=== PATIENT | female | born 1945 | race Caucasian/White ===

== ENCOUNTER → 2018-06-19 14:23 | Outpatient (CLI) | payer OTHER, SELFPAY | PROVIDERS: Visit Provider Physician Assistant | DX: M85.88 Other specified disorders of bone density and structure, other site (principal) | CPT/HCPCS: 77080 ==

== ENCOUNTER → 2019-09-11 14:15 | Outpatient (ROUT) | payer OTHER, SELFPAY ==
[2019-09-11 14:49] LABS: Add Manual Diff / Slide Review NO; Basophils Absolute Auto 0 /uL (0-100); Eosinophils Absolute Auto 100 /uL (0-450); Eosinophils Percent Auto 2.1 % (2-4); Hematocrit 34.1 % (36-46); Hemoglobin 11.6 g/dL (12.0-16.0); Lymphocytes Absolute Auto 1200 /uL (1100-4500); Lymphocytes Percent Auto 29.1 % (25-40); Mean Corpuscular HGB Conc 33.9 % (30-36); Mean Corpuscular Hemoglobin 32.4 PG (26-34); Mean Corpuscular Volume 95.6 fL (80-100); Monocytes Absolute Auto 400 /uL (0-900); Monocytes Percent Auto 10.5 % (3-14); Neutrophils Absolute Auto 2300 /uL (1500-7000); Neutrophils Percent Auto 57.3 % (50-75); Platelet Count 156 X10^3/uL (150-400); Red Blood Cell Count 3.57 X10^6/uL (4.0-5.2); Red Cell Distribution Width 13.8 % (11.6-14.8)
[2019-09-11 15:01] LABS: Alanine Aminotransferase 16 IU/L (<35); Albumin 4.2 g/dL (3.5-5.0); Albumin Globulin Ratio 1.4 (1.0-2.8); Alkaline Phosphatase 36 U/L (38-126); Aspartate Aminotransferase 28 IU/L (14-36); Bilirubin Total 0.4 mg/dL (0.2-1.3); Blood Urea Nitrogen 9 mg/dL (7-17); Calcium 9.3 mg/dL (8.4-10.2); Carbon Dioxide 31 mmol/L (22-32); Chloride 91 mmol/L (98-107); Cholesterol 179 mg/dL (140-199); Estimated Glomerular Filt Rate > 60.0 mL/min (>60); Glucose 77 mg/dL (80-110); HDL Cholesterol 55 mg/dL (40-60); HEMOLYSIS < 15 (0-50); LDL Cholesterol Calculated 110 mg/dL (<100); Potassium 4.8 mmol/L (3.4-5.1); Sodium 131 mmol/L (137-145); Total Protein 7.2 g/dL (6.3-8.2); Triglycerides 69 mg/dL (35-150)
[2019-09-11 15:29] LABS: TSH w/ Reflex to FT4 1.07 uIU/mL (0.47-4.68)
== END ==
PROVIDERS: Visit Provider Physician Assistant
DX: E03.9 Hypothyroidism, unspecified (principal); E78.5 Hyperlipidemia, unspecified
CPT/HCPCS: 80053; 80061; 84443; 85025

== ENCOUNTER 2020-02-24 14:14 | Emergency (ER) | payer MEDICARE, SELFPAY ==
[2020-02-24 14:22] VITALS: BP 122/62; PULSE 52; RESP 12; TEMP 36.2; O2SAT 99
--- NOTE | 2020-02-24 14:26 | PC.NURSE ---
reports, occured at her house, slipped on a rodriguez, occured approx [id number] denies head injury, loc, denies neck or back pain, or other injuries, ambulate with steady gait to room 2. reporting feeling dizzy at this time, hr 54, bp 122's, skin warm dry pink. prefers to be sitting on the stretcher.
--- NOTE | 2020-02-24 14:29 | PC.NURSE ---
gold colored band ring removed and pt gave to significant other.
--- NOTE | 2020-02-24 14:36 | DI.RAD.S_ITS ---
PROCEDURE: XR SHOULDER LT MIN 2V INDICATIONS: Left shoulder pain after fall on [place] TECHNIQUE: 3 views of the shoulder were acquired. COMPARISON: None. FINDINGS: Bones: There is a fracture identified involving the proximal humerus that appears to extend into the greater tuberosity. No dislocation or significant displacement of the fracture fragments is evident. No suspicious osseous lesions are identified. There are at least mild degenerative changes of the left shoulder joints. Soft tissues: No suspicious soft tissue calcifications. IMPRESSION: Proximal left humerus fracture with involvement of the greater tuberosity. No significant displacement. Dictated by: Bandar Eddy M.D. on 02/24/2020 at 14:28 Approved by: Bandar Eddy M.D. on 02/24/2020 at 14:29
--- NOTE | 2020-02-24 15:08 | ED.UPPEXIN ---
HPI - Extremity Injury (Upper) General Chief Complaint: Extremity Injury, Upper Stated Complaint: Fall lt arm Time Seen by Provider: 02/24/20 14:18 Source: patient Mode of arrival: Ambulatory History of Present Illness HPI narrative: 74-year-old woman with a history of osteoporosis and hypothyroidism presents after a fall at home onto a left outstretched arm complaining of acute left shoulder pain. She was walking along some [place] covered [place] property when she slipped. Her who was immediately available to help. There is no loss of consciousness and she did not injure any other part of her body. Once helped back to the house the pain caused a brief loss of consciousness with some nausea. This is now resolved. Related Data Home Medications Medication Instructions Recorded Confirmed levothyroxine [Synthroid] #0 11/10/17 Previous Rx's Medication Instructions Recorded ondansetron [Zofran ODT] 4 mg SUBLINGUAL Q6HP PRN #10 odt 11/11/17 hydrocodone-acetaminophen 1 tab PO Q8H PRN #14 tab 02/24/20 Allergies Allergy/AdvReac Type Severity Reaction Status Date / Time No Known Allergies Allergy Uncoded 02/13/18 13:06 Review of Systems Review of Systems Narrative: Pertinent positive and negative findings as per HPI Remainder of review of systems is otherwise unremarkable for Constitutional: Fevers, chills, weakness ENT: No sore throat, neck pain, ear pain CV: Chest pain, palpitations, dyspnea on exertion Respiratory: Cough, wheeze, dyspnea GI: Nausea, vomiting, diarrhea, change in bowel habits, black or bloody stools : Dysuria, hematuria, flank pain MS: Muscle weakness, numbness, joint swelling or warmth Skin: Rashes, nonhealing lesions Neuro: Syncope, dizziness, tingling Psych: Depression, anxiety, suicidal ideation Endocrine: Fatigue, heat or cold intolerance, very dry skin Heme: Easy bruising or bleeding Allergy: Seasonal rhinorrhea, itchy eyes Patient History Medical History Hypothyroidism (acquired) (Acute) Osteoporosis (Acute) Social History Smoking Status: Never smoker Smoking Status: Never smoker alcohol intake frequency: holidays/special occasions only Substance Use Type: does not use Exam Narrative Exam Narrative: General: Alert appropriate in no acute distress Respiratory: Able to speak in full sentences, no obvious respiratory distress Skin: No obvious rashes, warm and dry Neurologic: Grossly intact no obvious asymmetries or abnormalities Psych, appropriate insight and affect, cooperative Musculoskeletal, left shoulder anterior portion with fullness developing limited range of motion at the left shoulder due to pain, left upper extremity is neurovascularly intact with full range of motion at the elbow wrist and fingers Initial Vital Signs Initial Vital Signs: Vital Signs Temperature 97.2 F L 02/24/20 14:22 Pulse Rate 52 L 02/24/20 14:22 Respiratory Rate 12 02/24/20 14:22 Blood Pressure 122/62 02/24/20 14:22 Pulse Oximetry 99 02/24/20 14:22 Course Orders Ordered: ED Orders 02/24/20 14:36 XR shoulder LT min 2V Stat Vital Signs Vital signs: Vital Signs - 8 hr 02/24/20 14:22 Temperature 97.2 F L Pulse Rate 52 L Respiratory Rate 12 Blood Pressure 122/62 Pulse Oximetry 99 [facility] - Extremity Injury (Upper) Medical Records Attestation: I reviewed the patient's medical records. Imaging Data Shoulder x-ray: Radiologist's Impression: IMPRESSION: Proximal left humerus fracture with involvement of the greater tuberosity. No significant displacement. Dictated by: Bandar Eddy M.D. on 02/24/2020 at 14:28 MDM Narrative Medical decision making narrative: Mechanical fall in a basically healthy 74-year-old woman with subsequent proximal left humerus fracture. Neurovascularly intact without evidence of dislocation Pain is controlled Left arm is placed in a sling. Neurovascularly intact after sling placement and increased level of comfort for the patient is reported Will ask her to follow-up with ortho sometime within the next week. She is safe for home discharge Discharge Plan Departure Patient Disposition: Home Clinical Impression: Fracture of humerus Qualifiers: Encounter type: initial encounter Humerus Location: proximal Fracture type: closed Fracture morphology: other fracture Fracture alignment: nondisplaced Laterality: left Qualified Code(s): S42.295A - Other nondisplaced fracture of upper end of left humerus, initial encounter for closed fracture Instructions: DI for Fracture Activity Restrictions/Additional Instructions: Thank you for coming in today If you did break your arm. The fracture site is close to your shoulder joint but does not appear to be involving your shoulder joint. The treatment for this is typically use of the sling while your body heals itself. I would expect quite a bit of bruising and swelling for the 1st couple of days. Using 400 mg of ibuprofen (2 [id number] pills) and 1 Tylenol every 6 hours can be very helpful in controlling pain. Ice can also be helpful. For severe pain rather than Tylenol with the ibuprofen I would suggest 1 hydrocodone-acetaminophen, this is a narcotic. If you do choose to use the narcotic pain medication, please recognize that it will cause constipation and you will need to increase water, dried fruits or at a stool softener. Please call to schedule an appointment with the orthopedic surgeon for definitive fracture management sometime within the coming week. I hope you heal quickly Prescriptions: New hydrocodone-acetaminophen 5-325 mg tablet 1 tab PO Q8H PRN (Reason: pain) Qty: 14 RF: 0 No Action levothyroxine [Synthroid] 75 MCG tablet Qty: 0 RF: 0 ondansetron [Zofran ODT] 4 MG tablet,disintegrating 4 mg Sublingual Q6HP PRNQty: 10 RF: 0 Referrals: Jadyn Holland MD [Emergency Provider] - Rosa Babb MD [Physician] -
[2020-02-24 15:55] VITALS: BP 122/62; PULSE 52; O2SAT 98
== END 2020-02-24 15:55 | disposition home or self-care (01) ==
PROVIDERS: Emergency Provider Emergency Medicine
DX: S42.295A Other nondisplaced fracture of upper end of left humerus, initial encounter for closed fracture (principal); W01.0XXA Fall on same level from slipping, tripping and stumbling without subsequent striking against object, initial encounter
CPT/HCPCS: 73030; 99283

== ENCOUNTER → 2021-02-28 18:45 | Outpatient (ROUT) | payer OTHER, SELFPAY ==
[2021-02-28 20:08] LABS: Alanine Aminotransferase 19 IU/L (<35); Albumin 4.2 g/dL (3.5-5.0); Albumin Globulin Ratio 1.3 (1.0-2.8); Alkaline Phosphatase 42 U/L (38-126); Aspartate Aminotransferase 32 IU/L (14-36); BUN Creatinine Ratio 14.3 (6-22); Bilirubin Total 0.2 mg/dL (0.2-1.3); Blood Urea Nitrogen 8 mg/dL (7-17); Calcium 9.6 mg/dL (8.4-10.2); Carbon Dioxide 29 mmol/L (22-32); Chloride 94 mmol/L (98-107); Cholesterol 208 mg/dL (140-199); Estimated Glomerular Filt Rate > 60.0 mL/min (>60); Globulin 3.3 g/dL (1.7-4.1); Glucose 75 mg/dL (80-110); HDL Cholesterol 67 mg/dL (40-60); HEMOLYSIS < 15 (0-50); LDL Cholesterol Calculated 126 mg/dL (<100); Potassium 5.1 mmol/L (3.4-5.1); Sodium 131 mmol/L (137-145); Total Protein 7.5 g/dL (6.3-8.2); Triglycerides 77 mg/dL (35-150)
[2021-02-28 20:09] LABS: Vitamin D 25 Hydroxy (D3) 67.3 ng/mL (30.0-100.0)
[2021-02-28 20:25] LABS: TSH w/ Reflex to FT4 0.73 uIU/mL (0.47-4.68)
[2021-03-04 07:24] LABS: HEMOLYSIS < 15 (0-50); Iron 123 ug/dL (37-170)
[2021-03-04 07:34] LABS: Percent Iron Saturation 40 % (15-50); Total Iron Binding Capacity 309 ug/dL (265-497); Transferrin 263 mg/dL (206-381)
[2021-03-04 07:55] LABS: Ferritin 35 ng/mL (11-264)
== END ==
PROVIDERS: Visit Provider Physician Assistant
DX: E03.9 Hypothyroidism, unspecified (principal); M85.9 Disorder of bone density and structure, unspecified; E78.00 Pure hypercholesterolemia, unspecified
CPT/HCPCS: 80053; 80061; 82306; 82728; 83540; 83550; 84443

== ENCOUNTER → 2021-03-01 19:28 | Outpatient (ROUT) | payer OTHER, SELFPAY ==
[2021-03-01 20:10] LABS: Add Manual Diff / Slide Review NO; Basophils Absolute Auto 0 /uL (0-100); Basophils Percent Auto 0.7 % (0-2); Eosinophils Absolute Auto 100 /uL (0-450); Eosinophils Percent Auto 1.4 % (2-4); Hematocrit 33.1 % (36-46); Hemoglobin 11.4 g/dL (12.0-16.0); Lymphocytes Absolute Auto 1800 /uL (1100-4500); Lymphocytes Percent Auto 36.3 % (25-40); Mean Corpuscular HGB Conc 34.3 % (30-36); Mean Corpuscular Hemoglobin 32.7 PG (26-34); Mean Corpuscular Volume 95.1 fL (80-100); Monocytes Absolute Auto 400 /uL (0-900); Monocytes Percent Auto 8.1 % (3-14); Neutrophils Absolute Auto 2700 /uL (1500-7000); Neutrophils Percent Auto 53.5 % (50-75); Platelet Count 178 X10^3/uL (150-400); Red Blood Cell Count 3.48 X10^6/uL (4.0-5.2); Red Cell Distribution Width 13.8 % (11.6-14.8)
== END ==
PROVIDERS: Visit Provider Physician Assistant
DX: E03.9 Hypothyroidism, unspecified (principal); M85.9 Disorder of bone density and structure, unspecified; E78.00 Pure hypercholesterolemia, unspecified
CPT/HCPCS: 85025

== ENCOUNTER → 2021-03-29 13:28 | Outpatient (CLI) | payer OTHER, SELFPAY | PROVIDERS: PCP Physician Assistant; Referring Provider Physician Assistant; Visit Provider Physician Assistant | DX: M85.88 Other specified disorders of bone density and structure, other site (principal); Z78.0 Asymptomatic menopausal state; E07.9 Disorder of thyroid, unspecified | CPT/HCPCS: 77080 ==

== ENCOUNTER → 2023-04-19 | Outpatient (CLI) | payer OTHER, SELFPAY ==
--- NOTE | 2023-04-19 11:59 | DI.DEXA.S_ITS ---
Bone Density Report Name: BEATRIS NUNEZ Age: 77 Sex: Female Ethnicity: White Date of : 1945 Indication: osteopenia; parental hip fracture; prior fracture; Referring Provider: IMELDA SCHWAB Study: Bone densitometry was performed. Exam Date: April 19, 2023 Accession number: [id number] Bone Density: Region BMD T-score Z-score Classification AP Spine(L1, L2) 0.766 -1.9 0.4 Osteopenia Femoral Neck (Left) 0.740 -1.0 1.2 Normal Total Hip (Left) 0.805 -1.1 0.7 Osteopenia Femoral Neck (Right) 0.743 -1.0 1.2 Normal Total Hip (Right) 0.838 -0.9 1.0 Normal Total Hip Mean 0.821 -1.0 0.9 Normal World Health Organization criteria for BMD impression classify patients as: Normal (T-score at or above -1.0), Osteopenia (T-score between -1.0 and -2.5), or Osteoporosis (T-score at or below -2.5). 10-year Fracture Risk(1): Major Osteoporotic Fracture 22% Hip Fracture 9.5% Reported Risk Factors: [place] (), Neck BMD=0.740, BMI=21.9, previous fracture, parental fracture (1) FRAX(R) Version 3.08. Fracture probability calculated for an untreated patient. Fracture probability may be lower if the patient has received treatment. Previous Exams: -- Region Exam Age BMD T-score BMD Change BMD Change Date g/cm2 vs Baseline vs Previous -- AP Spine (L1-L2) 04/19/2023 77 0.766 -1.9 -0.010 (-1.2%)# -0.010 (-1.2%)# 03/29/2021 75 0.775 -1.9 Total Hip(Left) 04/19/2023 77 0.805 -1.1 -0.014 (-1.7%)# -0.014 (-1.7%)# 03/29/2021 75 0.818 -1.0 Total Hip(Right) 04/19/2023 77 0.838 -0.9 -0.019 (-2.2%)# -0.019 (-2.2%)# 03/29/2021 75 0.857 -0.7 -- *Denotes significance at 95% confidence level, LSC for AP Spine = 0.022 g/cm2, LSC for Total Hip = 0.027 g/cm2 # Denotes dissimilar scan types or analysis methods Impression: The patient has low bone mass, based on the Total Spine T-score. The patient has an estimated ten-year risk of hip fracture of 9.5% and an estimated ten-year risk of major fracture of 22%, based on the WHO FRAX algorithm. The patient has risk factors, including: parental hip fracture, previous fracture. No significant bone loss was observed. Discussion: BONE DENSITY IS LOW AT ONE OR MORE SKELETAL SITES. THE PATIENT'S BMD AND CLINICAL RISK FACTORS CONTRIBUTE TO THIS PATIENT'S HIGH RISK OF FRACTURE. This patient's lowest T-score is low at one or more skeletal sites. It meets the World Health Organization's (WHO) criteria for ?low bone mass? (T-score between -1.0 and -2.5). The patient's 10-year risk of hip fracture and 10 year risk of a major osteoporotic fracture as calculated by FRAX exceeds the threshold where pharmacological therapy is recommended by the National Osteoporosis Foundation (NOF). However, all treatment decisions require clinical judgment and consideration of individual patient factors, including patient preferences, comorbidities, previous drug use, risk factors not captured in the FRAX model (e.g., frailty, falls, vitamin D deficiency, increased bone turnover, interval significant decline in bone density) and possible under or overestimation of fracture risk by FRAX. The patient should follow a healthful lifestyle (good nutrition with adequate calcium and vitamin D, and appropriate weight-bearing exercise). Follow-Up: Consider a repeat BMD and Vertebral Fracture Assessment (VFA) exam in 2 years or sooner if medically necessary, to reassess this patient's status. Reported by: YOMAIRA SHEN M.D. on 04/19/2023 12:14:00 PM.
== END ==
LOC: RAD 11:38
PROVIDERS: PCP Physician Assistant; Referring Provider Physician Assistant; Visit Provider Physician Assistant
DX: Z78.0 Asymptomatic menopausal state (principal); M85.88 Other specified disorders of bone density and structure, other site
CPT/HCPCS: 77080

== ENCOUNTER → 2024-01-16 14:04 | Outpatient (CLI) | payer OTHER, SELFPAY ==
[2024-01-16 14:44] LABS: Hemoglobin 11.4 g/dL (12.0-16.0)
[2024-01-16 15:16] LABS: BUN Creatinine Ratio 14.3 (6-22); Blood Urea Nitrogen 8 mg/dL (7-17); Calcium 9.6 mg/dL (8.4-10.2); Carbon Dioxide 31 mmol/L (22-32); Chloride 97 mmol/L (98-107); Estimated Glomerular Filt Rate > 60 mL/min (>60); Glucose 85 mg/dL (80-110); HEMOLYSIS < 15 (0-50); Potassium 4.9 mmol/L (3.4-5.1); Sodium 131 mmol/L (137-145)
[2024-01-16 16:16] LABS: Creatinine Urine Random 55.3 mg/dL; Protein (Total) Urine Random 8 mg/dL (0-12); Protein Creatinine Ratio Urine 0.14 GRAM/24H
== END ==
LOC: LAB 14:07
PROVIDERS: PCP Physician Assistant; Referring Provider Student in an Organized Health Care Education/Training Program; Visit Provider Student in an Organized Health Care Education/Training Program
DX: N05.9 Unspecified nephritic syndrome with unspecified morphologic changes (principal); D64.9 Anemia, unspecified; R80.9 Proteinuria, unspecified
CPT/HCPCS: 36415; 80048; 82570; 84156; 85014; 85018

== ENCOUNTER → 2024-02-22 07:53 | Outpatient (CLI) | payer OTHER, SELFPAY ==
[2024-02-22 08:58] LABS: Appearance Urine UA CLEAR; Bilirubin Urine UA NEGATIVE (NEGATIVE); Color Urine UA YELLOW; Glucose Urine UA NEGATIVE (Negative); Ketones Urine UA NEGATIVE (NEGATIVE); Leukocyte Esterase Urine UA NEGATIVE (NEGATIVE); Nitrite Urine UA NEGATIVE (Negative); Occult Blood Urine UA NEGATIVE (Negative); Protein Urine UA NEGATIVE (Negative); Specific Gravity Urine UA 1.015 (1.000-1.035); Urobilinogen Urine UA 0.2 E.U./dL (0.2)
[2024-02-22 09:02] LABS: BUN Creatinine Ratio 8.6 (6-22); Bacteria Urine None Seen; Blood Urea Nitrogen 5 mg/dL (7-17); Calcium 9.3 mg/dL (8.4-10.2); Carbon Dioxide 30 mmol/L (22-32); Chloride 97 mmol/L (98-107); Culture Indicated Urine Cult Not Indicated; Estimated Glomerular Filt Rate > 60 mL/min (>60); Glucose 110 mg/dL (80-110); HEMOLYSIS < 15 (0-50); Potassium 4.4 mmol/L (3.4-5.1); RBC Urine None Seen (0-5/HPF); Sodium 131 mmol/L (137-145); Squamous Epithelial Cell Urine None Seen (0-5/HPF); Urine Volume 10mL (spun); WBC Urine None Seen (0-5/HPF)
[2024-02-22 09:32] LABS: Cortisol AM (Before 10AM) 15.2 ug/dL (4.46-22.7)
[2024-02-22 09:34] LABS: Thyroid Stimulating Hormone 0.689 uIU/mL (0.47-4.68)
[2024-02-22 10:13] LABS: Sodium Urine Random 124 mmol/L (30-90)
[2024-02-25 12:37] LABS: Osmolality Urine 373 mOsmol/kg (.)
[2024-02-26 09:22] LABS: Osmolality, Serum 273 mOsmol/kg (280-301)
== END ==
LOC: LAB 07:55
PROVIDERS: PCP Physician Assistant; Referring Provider Student in an Organized Health Care Education/Training Program; Visit Provider Student in an Organized Health Care Education/Training Program
DX: E78.1 Pure hyperglyceridemia (principal); N05.9 Unspecified nephritic syndrome with unspecified morphologic changes; E87.1 Hypo-osmolality and hyponatremia; E03.9 Hypothyroidism, unspecified; N30.00 Acute cystitis without hematuria
CPT/HCPCS: 36415; 80048; 81001; 82533; 83930; 83935; 84300; 84443

== ENCOUNTER → 2024-04-30 15:18 | Outpatient (CLI) | payer OTHER, SELFPAY ==
[2024-04-30 17:39] LABS: BUN Creatinine Ratio 11.5 (6-22); Blood Urea Nitrogen 7 mg/dL (7-17); Calcium 9.3 mg/dL (8.4-10.2); Carbon Dioxide 31 mmol/L (22-32); Chloride 96 mmol/L (98-107); Estimated Glomerular Filt Rate > 60 mL/min (>60); Glucose 87 mg/dL (80-110); HEMOLYSIS < 15 (0-50); Potassium 4.8 mmol/L (3.4-5.1); Sodium 130 mmol/L (137-145)
== END ==
PROVIDERS: PCP Physician Assistant; Referring Provider Student in an Organized Health Care Education/Training Program; Visit Provider Student in an Organized Health Care Education/Training Program
DX: N05.9 Unspecified nephritic syndrome with unspecified morphologic changes (principal)
CPT/HCPCS: 36415; 80048

== ENCOUNTER → 2024-08-15 10:59 | Outpatient (CLI) | payer OTHER, SELFPAY ==
[2024-08-15 13:50] LABS: BUN Creatinine Ratio 12.1 (6-22); Blood Urea Nitrogen 7 mg/dL (7-17); Calcium 9.3 mg/dL (8.4-10.2); Carbon Dioxide 29 mmol/L (22-32); Chloride 92 mmol/L (98-107); Estimated Glomerular Filt Rate > 60 mL/min (>60); Glucose 74 mg/dL (80-110); HEMOLYSIS < 15 (0-50); Potassium 4.7 mmol/L (3.4-5.1); Sodium 126 mmol/L (137-145)
== END ==
PROVIDERS: PCP Physician Assistant; Referring Provider Student in an Organized Health Care Education/Training Program; Visit Provider Student in an Organized Health Care Education/Training Program
DX: N05.9 Unspecified nephritic syndrome with unspecified morphologic changes (principal)
CPT/HCPCS: 36415; 80048

== ENCOUNTER → 2024-09-05 10:44 | Outpatient (CLI) | payer OTHER, SELFPAY ==
[2024-09-05 12:05] LABS: BUN Creatinine Ratio 41.7 (6-22); Blood Urea Nitrogen 25 mg/dL (7-17); Calcium 9.6 mg/dL (8.4-10.2); Carbon Dioxide 27 mmol/L (22-32); Chloride 92 mmol/L (98-107); Estimated Glomerular Filt Rate > 60 mL/min (>60); Glucose 136 mg/dL (80-110); HEMOLYSIS < 15 (0-50); Potassium 4.5 mmol/L (3.4-5.1); Sodium 128 mmol/L (137-145)
== END ==
PROVIDERS: PCP Physician Assistant; Referring Provider Student in an Organized Health Care Education/Training Program; Visit Provider Student in an Organized Health Care Education/Training Program
DX: N05.9 Unspecified nephritic syndrome with unspecified morphologic changes (principal)
CPT/HCPCS: 36415; 80048

== ENCOUNTER 2025-01-04 12:32 | Emergency (ER) | payer MEDICARE, SELFPAY ==
[2025-01-04] VITALS (23 sets, daily range): BP systolic 116–144; BP diastolic 59–74; PULSE 52–69; RESP 11–37; TEMP 36.7; O2SAT 96–100; BMI 21.2
--- NOTE | 2025-01-04 12:57 | DI.RAD.S_ITS ---
PROCEDURE: XR CHEST 1V INDICATIONS: chest pain TECHNIQUE: One view of the chest was acquired. COMPARISON: None. FINDINGS: Surgical changes and devices: None. Lungs and pleura: Lungs are clear. No pleural effusions or pneumothorax. Mediastinum: Mediastinal contours appear normal. Heart size is normal. Bones and chest wall: No suspicious bony lesions. Overlying soft tissues appear unremarkable. IMPRESSION: No acute cardiopulmonary abnormality is seen. Approved by: Johnny Colón M.D. on 01/04/2025 at 12:32
--- NOTE | 2025-01-04 13:01 | EKG_ITS ---
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
[2025-01-04 13:16] LABS: Add Manual Diff / Slide Review NO; Basophils Absolute Auto 0 /uL (0-100); Basophils Percent Auto 0.2 % (0-2); Eosinophils Absolute Auto 0 /uL (0-450); Eosinophils Percent Auto 0.1 % (2-4); Hematocrit 34.4 % (36-46); Hemoglobin 11.9 g/dL (12.0-16.0); Lymphocytes Absolute Auto 800 /uL (1100-4500); Lymphocytes Percent Auto 10.9 % (25-40); Mean Corpuscular HGB Conc 34.5 % (30-36); Mean Corpuscular Hemoglobin 32.4 PG (26-34); Mean Corpuscular Volume 93.7 fL (80-100); Monocytes Absolute Auto 400 /uL (0-900); Monocytes Percent Auto 5.7 % (3-14); Neutrophils Absolute Auto 6400 /uL (1500-7000); Neutrophils Percent Auto 83.1 % (50-75); Platelet Count 256 X10^3/uL (150-400); Red Blood Cell Count 3.67 X10^6/uL (4.0-5.2); Red Cell Distribution Width 13.5 % (11.6-14.8); White Blood Cell Count 7.6 X10^3/uL (4.5-11.0)
[2025-01-04 13:32] LABS: Prothrombin Time 11.4 SECONDS (9.4-12.5)
[2025-01-04 13:35] LABS: PTT Partial Thromboplastin Tim 45 SECONDS (25.1-36.5)
[2025-01-04 13:37] LABS: Alanine Aminotransferase 17 IU/L (<35); Albumin 4.4 g/dL (3.5-5.0); Albumin Globulin Ratio 1.2 (1.0-2.8); Alkaline Phosphatase 38 U/L (38-126); Aspartate Aminotransferase 28 IU/L (14-36); BUN Creatinine Ratio 15.3 (6-22); Bilirubin Total 0.4 mg/dL (0.2-1.3); Blood Urea Nitrogen 9 mg/dL (7-17); Calcium 9.3 mg/dL (8.4-10.2); Carbon Dioxide 29 mmol/L (22-32); Chloride 92 mmol/L (98-107); Creatine Kinase 32 U/L (30-135); Estimated Glomerular Filt Rate > 60 mL/min (>60); Globulin 3.6 g/dL (1.7-4.1); Glucose 112 mg/dL (80-110); HEMOLYSIS 19 (0-50); Lipase 41 U/L (23-300); Potassium 4.7 mmol/L (3.4-5.1); Sodium 129 mmol/L (137-145)
[2025-01-04 13:48] LABS: NT-proBNP (BNP-Adult 18+) 59 pg/mL (<450); Troponin I < 0.012 ng/mL (0.01-0.034)
--- NOTE | 2025-01-04 14:40 | PC.NURSE ---
Pt denies dizziness during orthostatic bp. A&Ox4. Stood at bedside with standby assist.
--- NOTE | 2025-01-04 15:15 | ED_ITS ---
HPI - Syncope General Chief Complaint: Syncope Stated Complaint: fainting, o2 82, bp&pulse low, covid+ t-12 Time Seen by Provider: 01/04/25 13:02 Source: patient and family Mode of arrival: Wheelchair Limitations: no limitations History of Present Illness HPI narrative: 71-year-old female who arrives accompanied by family for syncope. History is provided by the patient and daughter and son. Patient reports she was in the kitchen and began feeling lightheaded. She sat down and was unresponsive for a period of minutes. No seizure activity seen. Patient became alert and returned to baseline quickly. Patient reports food and feeling lightheaded she was feeling well prior to this. Recently did have COVID. Had been bending over and standing up when this occurred. Has had syncopal episodes in the past but not frequently. Has not been having chest pain has been eating less than usual but maintaining fluid intake. No signs of GI bleeding. Related Data Home Medications Medication Instructions Recorded Confirmed levothyroxine 75 mcg tablet ##0 11/10/17 (Synthroid) Previous Rx's Medication Instructions Recorded ondansetron 4 mg disintegrating 4 mg sublingual Q6HP PRN ##10 11/11/17 tablet (Zofran ODT) hydrocodone 5 mg-acetaminophen 325 1 tab PO Q8H PRN pain #14 tabs 02/24/20 mg tablet Allergies Allergy/AdvReac Type Severity Reaction Status Date / Time No Known Allergies Allergy Uncoded 02/13/18 13:06 Patient History Medical History (Updated 01/04/25 @ 15:11 by Yoel Ely MD) Hypothyroidism (acquired) Osteoporosis Social History Smoking Status: Never smoker Smoking Status: Never smoker alcohol intake frequency: holidays/special occasions only Exam Initial Vital Signs Initial Vital Signs: Vital Signs Temperature 98.1 F 01/04/25 12:47 Pulse Rate 58 L 01/04/25 12:47 Respiratory Rate 16 01/04/25 12:47 Blood Pressure 128/59 L 01/04/25 12:47 Pulse Oximetry 99 01/04/25 12:47 Oxygen Delivery Method Room Air 01/04/25 12:47 Vital signs reviewed, slightly bradycardic Const Other: Well-appearing elderly female hard of hearing HENMT HENMT Other: Normocephalic and atraumatic Neck Other: Neck is supple Resp Other: Lungs are clear Cardio Other: Regular rhythm and rate no murmur rub or gallop symmetric pulses GI Other: Normal bowel sounds soft nontender without pulsatile mass Skin Other: Warm and dry Neuro Other: Alert and oriented without focal deficit Course Course Course Narrative: Patient remained stable, no orthostatic vital sign changes Orders Ordered: ED Orders 01/04/25 12:57 XR chest 1V Stat EKG-12 Lead Stat 01/04/25 13:05 Complete Blood Count AUTO DIFF Stat Comprehensive Metabolic Panel Stat Lipase Stat Magnesium Stat NT-proBNP (BNP-Adult 18+) Stat PTT Partial Thromboplastin John Stat Prothrombin Time INR Stat Troponin & CK Cardiac Panel Stat Vital Signs Vital signs: Vital Signs - 8 hr 01/04/25 12:47 01/04/25 12:57 01/04/25 13:00 Temperature 98.1 F Pulse Rate 58 L 60 55 L Pulse Rate [Orthostatic Lying] Pulse Rate [Orthostatic Sitting] Pulse Rate [Orthostatic Standing] Respiratory Rate 16 Blood Pressure 128/59 L Blood Pressure [Orthostatic Lying] Blood Pressure [Orthostatic Sitting] Blood Pressure [Orthostatic Standing] Pulse Oximetry 99 99 99 Oxygen Delivery Method Room Air 01/04/25 13:03 01/04/25 13:03 01/04/25 13:30 Temperature Pulse Rate 59 L 56 L Pulse Rate [Orthostatic Lying] Pulse Rate [Orthostatic Sitting] Pulse Rate [Orthostatic Standing] Respiratory Rate 25 H Blood Pressure 144/73 H Blood Pressure [Orthostatic Lying] Blood Pressure [Orthostatic Sitting] Blood Pressure [Orthostatic Standing] Pulse Oximetry 100 96 Oxygen Delivery Method 01/04/25 13:30 01/04/25 13:43 01/04/25 13:43 Temperature Pulse Rate 56 L Pulse Rate [Orthostatic Lying] Pulse Rate [Orthostatic Sitting] Pulse Rate [Orthostatic Standing] Respiratory Rate 26 H Blood Pressure 116/71 129/68 Blood Pressure [Orthostatic Lying] Blood Pressure [Orthostatic Sitting] Blood Pressure [Orthostatic Standing] Pulse Oximetry 99 Oxygen Delivery Method 01/04/25 13:50 01/04/25 13:50 01/04/25 14:00 Temperature Pulse Rate 55 L 55 L Pulse Rate [Orthostatic Lying] Pulse Rate [Orthostatic Sitting] Pulse Rate [Orthostatic Standing] Respiratory Rate 32 H 31 H Blood Pressure 134/73 Blood Pressure [Orthostatic Lying] Blood Pressure [Orthostatic Sitting] Blood Pressure [Orthostatic Standing] Pulse Oximetry 99 96 Oxygen Delivery Method 01/04/25 14:00 01/04/25 14:10 01/04/25 14:10 Temperature Pulse Rate 57 L Pulse Rate [Orthostatic Lying] Pulse Rate [Orthostatic Sitting] Pulse Rate [Orthostatic Standing] Respiratory Rate 28 H Blood Pressure 126/66 130/73 Blood Pressure [Orthostatic Lying] Blood Pressure [Orthostatic Sitting] Blood Pressure [Orthostatic Standing] Pulse Oximetry 98 Oxygen Delivery Method 01/04/25 14:20 01/04/25 14:20 01/04/25 14:30 Temperature Pulse Rate 54 L 55 L Pulse Rate [Orthostatic Lying] Pulse Rate [Orthostatic Sitting] Pulse Rate [Orthostatic Standing] Respiratory Rate 26 H 22 Blood Pressure 133/74 Blood Pressure [Orthostatic Lying] Blood Pressure [Orthostatic Sitting] Blood Pressure [Orthostatic Standing] Pulse Oximetry 99 100 Oxygen Delivery Method 01/04/25 14:30 01/04/25 14:34 01/04/25 14:34 Temperature Pulse Rate 52 L Pulse Rate [Orthostatic Lying] Pulse Rate [Orthostatic Sitting] Pulse Rate [Orthostatic Standing] Respiratory Rate 11 L Blood Pressure 130/66 138/66 Blood Pressure [Orthostatic Lying] Blood Pressure [Orthostatic Sitting] Blood Pressure [Orthostatic Standing] Pulse Oximetry 100 Oxygen Delivery Method 01/04/25 14:35 01/04/25 14:35 01/04/25 14:36 Temperature Pulse Rate 58 L 60 Pulse Rate [Orthostatic Lying] Pulse Rate [Orthostatic Sitting] Pulse Rate [Orthostatic Standing] Respiratory Rate 36 H 37 H Blood Pressure 132/73 Blood Pressure [Orthostatic Lying] Blood Pressure [Orthostatic Sitting] Blood Pressure [Orthostatic Standing] Pulse Oximetry 100 99 Oxygen Delivery Method 01/04/25 14:36 01/04/25 14:39 01/04/25 14:40 Temperature Pulse Rate 54 L Pulse Rate [Orthostatic Lying] 53 L Pulse Rate [Orthostatic Sitting] 57 L Pulse Rate [Orthostatic Standing] 60 Respiratory Rate 28 H Blood Pressure 135/70 Blood Pressure [Orthostatic Lying] 130/66 Blood Pressure [Orthostatic Sitting] 132/73 Blood Pressure [Orthostatic Standing] 135/70 Pulse Oximetry 99 Oxygen Delivery Method 01/04/25 14:40 Temperature Pulse Rate Pulse Rate [Orthostatic Lying] Pulse Rate [Orthostatic Sitting] Pulse Rate [Orthostatic Standing] Respiratory Rate Blood Pressure 132/68 Blood Pressure [Orthostatic Lying] Blood Pressure [Orthostatic Sitting] Blood Pressure [Orthostatic Standing] Pulse Oximetry Oxygen Delivery Method MDM - Syncope Lab Data 01/04/25 13:05 01/04/25 13:05 Labs: Lab Results 01/04/25 Range/Units 13:05 WBC 7.6 (4.5-11.0) X10^3/uL RBC 3.67 L (4.0-5.2) X10^6/uL Hgb 11.9 L (12.0-16.0) g/dL Hct 34.4 L (36-46) % MCV 93.7 (80-100) fL MCH 32.4 (26-34) PG MCHC 34.5 (30-36) % RDW 13.5 (11.6-14.8) % Plt Count 256 (150-400) X10^3/uL Neut % (Auto) 83.1 H (50-75) % Lymph % (Auto) 10.9 L (25-40) % [place] % (Auto) 5.7 (3-14) % Eos % (Auto) 0.1 L (2-4) % Baso % (Auto) 0.2 (0-2) % Neut # (Auto) 6400 (5986-8940) /uL Lymph # (Auto) 800 L (7839-6731) /uL [place] # (Auto) 400 (0-900) /uL Eos # (Auto) 0 (0-450) /uL Baso # (Auto) 0 (0-100) /uL PT 11.4 (9.4-12.5) SECONDS INR 1.0 (0.9-1.3) APTT 45 H (25.1-36.5) SECONDS Sodium 129 L (137-145) mmol/L Potassium 4.7 (3.4-5.1) mmol/L Chloride 92 L (98-107) mmol/L Carbon Dioxide 29 (22-32) mmol/L BUN 9 (7-17) mg/dL Creatinine 0.59 (0.52-1.04) mg/dL Estimated GFR > 60 (>60) mL/min BUN/Creatinine Ratio 15.3 (6-22) Glucose 112 H (80-110) mg/dL Calcium 9.3 (8.4-10.2) mg/dL Magnesium 2.0 (1.6-2.3) mg/dL Total Bilirubin 0.4 (0.2-1.3) mg/dL AST 28 (14-36) IU/L ALT 17 (<35) IU/L Alkaline Phosphatase 38 (38-126) U/L Total Creatine Kinase 32 (30-135) U/L Troponin I < 0.012 (0.01-0.034) ng/mL NT-Pro-B Natriuret Pep 59 (<450) pg/mL Total Protein 8.0 (6.3-8.2) g/dL Albumin 4.4 (3.5-5.0) g/dL Globulin 3.6 (1.7-4.1) g/dL Albumin/Globulin Ratio 1.2 (1.0-2.8) Lipase 41 (23-300) U/L Discharge Plan Departure Patient Disposition: Home Clinical Impression: Syncope Qualifiers: Syncope type: unspecified Qualified Code(s): R55 - Syncope and collapse Activity Restrictions/Additional Instructions: Emergency department evaluation today is reassuring. No serious cause for this fainting episode is found I think it is safe to go home. I recommend that you get adequate fluids and take it easy for the next day or 2. If you find yourself feeling faint make sure that you are sitting down immediately. If you have another syncopal episode if you have shortness breath chest pain fevers or other acute symptoms recheck in the emergency department. Follow up soon with her primary care provider. Prescriptions: No Action levothyroxine [Synthroid] 75 MCG tablet Qty: 0 ondansetron [Zofran ODT] 4 MG tablet,disintegrating 4 mg Sublingual Q6HP PRNQty: 10 0RF hydrocodone-acetaminophen 5-325 mg tablet 1 tab PO Q8H PRN (Reason: pain) Qty: 14 0RF Rx Instructions: For fractured arm Referrals: Vidya Fernandez PA-C [Primary Care Provider] - Stand Alone Forms: Patient Portal/API/Survey
== END 2025-01-04 15:56 | disposition home or self-care (01) ==
PROVIDERS: Emergency Medicine; Emergency Provider Emergency Medicine; PCP Physician Assistant
DX: R55 Syncope and collapse (principal); Z86.16 Personal history of COVID-19; R00.1 Bradycardia, unspecified; R07.9 Chest pain, unspecified
CPT/HCPCS: 36415; 71045; 80053; 82550; 83690; 83735; 83880; 84484; 85025; 85610; 85730; 93005; 99283; 99284

== ENCOUNTER → 2025-10-23 11:44 | Outpatient (CLI) | payer MEDICARE, SELFPAY ==
[2025-10-24 14:40] LABS: EBV EBNA Antibody IgG 531.0 U/mL (0.0-17.9); EBV Virus IgG Ab > 600.0 U/mL (0.0-17.9); EBV Virus IgM Ab 41.2 U/mL (0.0-35.9)
== END ==
PROVIDERS: PCP Physician Assistant; Referring Provider Internal Medicine Infectious Disease; Visit Provider Internal Medicine Infectious Disease
DX: B27.90 Infectious mononucleosis, unspecified without complication (principal)
CPT/HCPCS: 36415; 86664; 86665; 87798